=== PATIENT | male | born 1940 | race Caucasian/White ===

== ENCOUNTER 2021-04-13 16:34 | Inpatient (IN) | payer MEDICARE ==
[2021-04-13] MEDS ORDERED: Hydrocortisone Sod Succ/PF 100 mg/2 ml Vial ONE (17:37)
[2021-04-13] MEDS ORDERED: Vancomycin HCl 500 MG VIAL ONE (17:37)
[2021-04-13] MEDS ORDERED: Acetaminophen 325 MG TAB PO PRN (22:14)
[2021-04-14] MEDS ORDERED: Cefepime 2 GM VIAL ONE ×2 (01:00)
[2021-04-14] MEDS ORDERED: Sodium Chloride 0.9% 100 ML ONE (01:00)
[2021-04-14] MEDS: Hydrocortisone Sod Succ/PF 100 mg/2 ml Vial IVP SCH ×4 (01:05→19:05)
[2021-04-14] MEDS: Cefepime 2 GM in Sodium Chloride 0.9% 100 ML IVPB SCH ×3 (01:05→19:05)
[2021-04-14] MEDS: Lactated Ringer's 1,000 ML IV SCH ×2 (01:05→11:06)
[2021-04-14 01:23] LABS: Troponin I 0.014 ng/mL (< 0.028)
[2021-04-14 05:03] LABS: #Monocytes 0.3 10x3/uL (0.0-1.1); #Neutrophils 7.1 10x3/uL (1.5-8.4); %Basophils 0.1 % (0.0-2.0); %Monocytes 3.9 % (0.0-10.0); %Neutrophils 88.7 % (40.0-75.0); Hemoglobin 13.3 g/dL (13.5-17.5); Mean Corpuscular HGB CONC 32.1 g/dL (32.0-36.0); Mean Corpuscular Hemoglobin 30.6 pg (27.0-33.0); Mean Corpuscular Volume 95.4 fl (81.2-95.1); Mean Platelet Volume 10.8 fl (7.4-10.4); Platelet Count 145 10x3/uL (150-450); RBC Distribution Width 14.3 % (11.5-14.5); Red Blood Cell (RBC) Count 4.34 10x6/uL (4.32-5.72)
[2021-04-14 05:17] LABS: Anion Gap 10 mmol/L (10-20); BUN (Urea Nitrogen) 25 mg/dL (8.4-25.7); Calc. Creatinine Clearance 35 mL/min (70-130); Calcium 8.2 mg/dL (7.8-10.44); Carbon Dioxide 21 mmol/L (23-31); Chloride 110 mmol/L (98-107); Glucose 129 mg/dL (83-110); Magnesium 2.1 mg/dL (1.6-2.6); Potassium 4.1 mmol/L (3.5-5.1); Sodium 137 mmol/L (136-145)
[2021-04-14 05:22] LABS: Troponin I 0.013 ng/mL (< 0.028)
[2021-04-14] MEDS ORDERED: Vancomycin HCl 1 GM in Sodium Chloride 0.9% 250 ML 250 ML IVPB SCH ×2 (06:00→22:00)
[2021-04-14] MEDS: Fludrocortisone Acetate 0.1 MG TAB PO SCH (10:59)
[2021-04-14] MEDS: Aspirin 81 mg Enteric Coated Tablet PO SCH (10:59)
[2021-04-14] MEDS ORDERED: Sterile Water 10 ML VIAL FS PRN (17:15)
[2021-04-14] MEDS: Ziprasidone 20 MG VIAL IM PRN ×2 (17:45→22:18)
[2021-04-14] MEDS ORDERED: Lorazepam 2 MG/ML VIAL SLOW IVP PRN (18:01)
[2021-04-14 21:36] LABS: SARS-CoV-2 NAA Rapid Test Not Detected (NotDetected)
[2021-04-15] MEDS ORDERED: Cefepime 1 GM VIAL IM SCH (03:30)
[2021-04-15] MEDS: Hydrocortisone Sod Succ/PF 100 mg/2 ml Vial IVP SCH ×4 (05:29→17:07)
[2021-04-15 06:28] LABS: Troponin I Less than 0.010 ng/mL (< 0.028)
[2021-04-15] MEDS: Cefepime 2 GM in Sodium Chloride 0.9% 100 ML IVPB SCH ×4 (06:28→17:01)
[2021-04-15] MEDS: Lactated Ringer's 1,000 ML IV SCH (06:29)
[2021-04-15] MEDS ORDERED: Vancomycin HCl 1 GM in Sodium Chloride 0.9% 250 ML 250 ML IVPB SCH (06:30)
[2021-04-15 09:11] LABS: #Neutrophils 17.2 10x3/uL (1.5-8.4); %Basophils 0.2 % (0.0-2.0); %Eosinophils 0.1 % (0.0-6.0); %Lymphocytes 5.1 % (18.0-47.0); %Monocytes 5.1 % (0.0-10.0); %Neutrophils 88.8 % (40.0-75.0); Hemoglobin 14.1 g/dL (13.5-17.5); Mean Corpuscular HGB CONC 33.3 g/dL (32.0-36.0); Mean Corpuscular Hemoglobin 30.5 pg (27.0-33.0); Mean Corpuscular Volume 91.8 fl (81.2-95.1); Mean Platelet Volume 11.2 fl (7.4-10.4); Platelet Count 208 10x3/uL (150-450); RBC Distribution Width 14.3 % (11.5-14.5); Red Blood Cell (RBC) Count 4.62 10x6/uL (4.32-5.72); White Blood Cell (WBC) Count 19.4 10x3/uL (3.5-10.5)
[2021-04-15 09:32] LABS: Anion Gap 11 mmol/L (10-20); BUN (Urea Nitrogen) 25 mg/dL (8.4-25.7); Calc. Creatinine Clearance 38 mL/min (70-130); Calcium 8.9 mg/dL (7.8-10.44); Carbon Dioxide 23 mmol/L (23-31); Chloride 113 mmol/L (98-107); Glucose 78 mg/dL (83-110); Potassium 3.6 mmol/L (3.5-5.1); Sodium 143 mmol/L (136-145)
[2021-04-15 12:04] VITALS: BMI 18.8
[2021-04-15] MEDS: Aspirin 81 mg Enteric Coated Tablet PO SCH ×3 (16:50→18:46)
[2021-04-15] MEDS: Fludrocortisone Acetate 0.1 MG TAB PO SCH ×3 (16:50→18:29)
[2021-04-15] MEDS ORDERED: Aspirin Chewable 81 MG TAB PO SCH (18:00)
[2021-04-15] MEDS: Vancomycin HCl 1 GM in Sodium Chloride 0.9% 250 ML 250 ML IVPB SCH (18:31)
[2021-04-15] MEDS: Ziprasidone 20 MG VIAL IM PRN (23:10)
[2021-04-16] MEDS: Cefepime 2 GM in Sodium Chloride 0.9% 100 ML IVPB SCH ×3 (03:35→18:02)
[2021-04-16] MEDS: Lactated Ringer's 1,000 ML IV SCH ×3 (03:38→23:42)
[2021-04-16] MEDS: Fludrocortisone Acetate 0.1 MG TAB PO SCH (11:18)
[2021-04-16] MEDS: Aspirin Chewable 81 MG TAB PO SCH (11:18)
[2021-04-17] MEDS: Cefepime 2 GM in Sodium Chloride 0.9% 100 ML IVPB SCH ×3 (01:45→11:18)
[2021-04-17] MEDS: Vancomycin HCl 1 GM in Sodium Chloride 0.9% 250 ML 250 ML IVPB SCH ×2 (02:07→02:25)
[2021-04-17 04:34] LABS: #Eosinphils 0.1 10x3/uL (0.0-0.5); #Monocytes 1.1 10x3/uL (0.0-1.1); #Neutrophils 12.8 10x3/uL (1.5-8.4); %Basophils 0.3 % (0.0-2.0); %Eosinophils 0.8 % (0.0-6.0); %Lymphocytes 7.1 % (18.0-47.0); %Monocytes 7.1 % (0.0-10.0); Hemoglobin 14.7 g/dL (13.5-17.5); Mean Corpuscular HGB CONC 32.6 g/dL (32.0-36.0); Mean Corpuscular Hemoglobin 30.5 pg (27.0-33.0); Mean Corpuscular Volume 93.6 fl (81.2-95.1); Mean Platelet Volume 10.9 fl (7.4-10.4); Platelet Count 220 10x3/uL (150-450); RBC Distribution Width 14.1 % (11.5-14.5); Red Blood Cell (RBC) Count 4.82 10x6/uL (4.32-5.72); White Blood Cell (WBC) Count 15.3 10x3/uL (3.5-10.5)
[2021-04-17 04:51] LABS: Anion Gap 17 mmol/L (10-20); BUN (Urea Nitrogen) 21 mg/dL (8.4-25.7); Calc. Creatinine Clearance 46 mL/min (70-130); Calcium 9.4 mg/dL (7.8-10.44); Carbon Dioxide 20 mmol/L (23-31); Chloride 112 mmol/L (98-107); Glucose 67 mg/dL (83-110); Potassium 3.9 mmol/L (3.5-5.1); Sodium 145 mmol/L (136-145)
[2021-04-17] MEDS: Fludrocortisone Acetate 0.1 MG TAB PO SCH (11:18)
[2021-04-17] MEDS: Aspirin Chewable 81 MG TAB PO SCH (11:18)
[2021-04-17] MEDS: Lactated Ringer's 1,000 ML IV SCH ×2 (11:19→20:36)
[2021-04-18] MEDS ORDERED: Furosemide 40 MG/4 ML VIAL ONE (01:45)
[2021-04-18] MEDS ORDERED: Nitroglycerin 2% Ointment 1 INCH/1 GM Packet ONE (01:45)
[2021-04-18 02:05] LABS: Actual Bicarbonate (HCO3a) 24.6 mEq/L (22-28); Base Excess (BEa) -0.7 mEq/L (-2.0 to +3.0); CO2 Tension 43.1 mmHg (35.0-45.0); Calcium, Ionized (arterial) 1.16 mmol/L (1.12-1.30); Carboxyhemoglobin (COHb) 0.4 gm% (0.0-3.0); Hemoglobin (Hb) 14.8 g/dL (14.0-18.0); O2 Tension (PaO2), arterial 66.2 mmHg (> 70.0); Potassium - ABG Lab 3.5 mmol/L (3.70-5.30); Puncture Site RBA; pH, Arterial 7.38 (7.35-7.45)
[2021-04-18 02:07] LABS: ALV-art Gradient 236.425 mmHg (0-20)
[2021-04-18] MEDS ORDERED: Acetaminophen 650 MG Suppository PR PRN (02:21)
[2021-04-18] MEDS ORDERED: Meropenem 1 GM in Sodium Chloride 0.9% 100 ML IVPB SCH (03:00)
[2021-04-18] MEDS ORDERED: MEROPENEM 1 GM/50 ML 1 GM in Premix Bag 1 BAG IVPB SCH ×2 (03:00→11:00)
[2021-04-18 03:31] LABS: Vancomycin, Trough 7.8 ug/mL
[2021-04-18 03:34] LABS: #Basophils 0.1 10x3/uL (0.0-0.2); #Eosinphils 0.2 10x3/uL (0.0-0.5); #Monocytes 1.1 10x3/uL (0.0-1.1); #Neutrophils 14.2 10x3/uL (1.5-8.4); %Basophils 0.3 % (0.0-2.0); %Eosinophils 1.2 % (0.0-6.0); %Lymphocytes 5.9 % (18.0-47.0); %Monocytes 6.7 % (0.0-10.0); %Neutrophils 85.2 % (40.0-75.0); Hemoglobin 13.9 g/dL (13.5-17.5); Mean Corpuscular HGB CONC 32.3 g/dL (32.0-36.0); Mean Corpuscular Hemoglobin 30.3 pg (27.0-33.0); Mean Corpuscular Volume 93.9 fl (81.2-95.1); Mean Platelet Volume 11.4 fl (7.4-10.4); Platelet Count 226 10x3/uL (150-450); RBC Distribution Width 14.2 % (11.5-14.5); Red Blood Cell (RBC) Count 4.58 10x6/uL (4.32-5.72); White Blood Cell (WBC) Count 16.7 10x3/uL (3.5-10.5)
[2021-04-18 03:48] LABS: Troponin I 0.037 ng/mL (< 0.028)
[2021-04-18 03:49] LABS: Anion Gap 13 mmol/L (10-20); BUN (Urea Nitrogen) 18 mg/dL (8.4-25.7); Calc. Creatinine Clearance 41 mL/min (70-130); Calcium 9.3 mg/dL (7.8-10.44); Carbon Dioxide 22 mmol/L (23-31); Chloride 109 mmol/L (98-107); Glucose 86 mg/dL (83-110); Magnesium 2.1 mg/dL (1.6-2.6); Potassium 4.2 mmol/L (3.5-5.1); Sodium 140 mmol/L (136-145)
[2021-04-18] MEDS: Vancomycin HCl 1 GM in Sodium Chloride 0.9% 250 ML 250 ML IVPB SCH (04:14)
[2021-04-18 05:10] VITALS: BP 86/52; TEMP 98.2
[2021-04-18 08:14] LABS: Lactic Acid 2.9 mmol/L (0.5-2.2)
[2021-04-18] MEDS ORDERED: Scopolamine 1.5 mg/72 hour Patch TD SCH (15:00)
[2021-04-18] MEDS: Lactated Ringer's 1,000 ML IV SCH (15:15)
== END 2021-04-18 19:45 | disposition expired | DRG 871 ==
LOC: CSHERS 16:34 → CSHTELE 20:30 → CSHIMCU 04-18 03:19
PROVIDERS: ADMIT Family Medicine; ATTEND Family Medicine
DX: A41.9 Sepsis, unspecified organism (principal); J96.01 Acute respiratory failure with hypoxia; J18.9 Pneumonia, unspecified organism; E27.40 Unspecified adrenocortical insufficiency; F02.81 Dementia in other diseases classified elsewhere, unspecified severity, with behavioral disturbance; N17.9 Acute kidney failure, unspecified; E44.0 Moderate protein-calorie malnutrition; Z68.1 Body mass index [BMI] 19.9 or less, adult; Z20.822 Contact with and (suspected) exposure to COVID-19; K44.9 Diaphragmatic hernia without obstruction or gangrene; K31.89 Other diseases of stomach and duodenum; Z66 Do not resuscitate; E78.5 Hyperlipidemia, unspecified; Z96.652 Presence of left artificial knee joint; N40.0 Benign prostatic hyperplasia without lower urinary tract symptoms; G30.9 Alzheimer's disease, unspecified; E86.0 Dehydration; I25.2 Old myocardial infarction; N18.32 Chronic kidney disease, stage 3b; Z86.2 Personal history of diseases of the blood and blood-forming organs and certain disorders involving the immune mechanism; R00.1 Bradycardia, unspecified; Z78.1 Physical restraint status; Z79.52 Long term (current) use of systemic steroids
CPT/HCPCS: 0241U; 36415; 36416; 36600; 70450; 71045; 74176; 80048; 80202; 82805; 83605; 83735; 84484; 85025; 87040; 93005; 93010; 94640; 94760; 96365; 96366; 96375; J0692; J1720; J1940; J1956; J2060; J2185; J3370; J3486; J3490; J7050